=== PATIENT | female | born 1990 | race Caucasian/White ===

== ENCOUNTER 2021-08-02 17:22 | Inpatient (IN) | payer OTHER ==
[2021-08-02 19:19] LABS: HEMOGLOBIN 9.5 gm/dl (12.3-15.3); RED BLOOD COUNT 3.89 M/UL (4.00-5.10); WHITE BLOOD COUNT 9.1 K/UL (4.5-11.0)
[2021-08-03] MEDS ORDERED: IBUPROFEN600 MG PO (05:34)
[2021-08-03] MEDS ORDERED: DOCUSATE SODIU100 MG PO (05:34)
[2021-08-03] MEDS ORDERED: HYDROCODON-ACE1 EAC4 PO (05:34)
[2021-08-03] MEDS ORDERED: FERROUS SULFAT325 M2 PO (05:34)
== END 2021-08-04 17:21 | disposition home or self-care (01) | DRG 788 ==
LOC: GENOP 17:22 → OB 18:02
PROVIDERS: ADMIT Obstetrics & Gynecology
PROC: 4A1HXCZ Monitoring of Products of Conception, Cardiac Rate, External Approach (ICD-10-PCS; 2021-08-03)
PROC: 10D00Z1 Extraction of Products of Conception, Low, Open Approach (ICD-10-PCS; principal; 2021-08-03 03:56)
DX: O34.211 Maternal care for low transverse scar from previous cesarean delivery (principal); Z3A.39 39 weeks gestation of pregnancy; Z37.0 Single live birth; O76 Abnormality in fetal heart rate and rhythm complicating labor and delivery; Z20.822 Contact with and (suspected) exposure to COVID-19; O69.1XX0 Labor and delivery complicated by cord around neck, with compression, not applicable or unspecified
CPT/HCPCS: 36415; 81001; 82800; 85014; 85018; 85025; J0456; J0690; J1170; J2370; J2405; J2590; J2704; J7030; U0002